=== PATIENT | male | born 1940 | race Caucasian/White ===

== ENCOUNTER 2018-10-16 17:51 | Emergency (ER) | payer MEDICARE ==
[~2018-10-16] VITALS: Ht 188 cm; Wt 99.4 kg
[2018-10-16 17:52] VITALS: BP 164/77
[2018-10-16] MEDS ORDERED: DOXYCYCLINE HYCLATE 100 MG TAB PO ONE (18:15)
[2018-10-17] MEDS ORDERED: METAL LOCK LOOP XX ONE (05:57)
[2018-10-20 00:08] LABS: Lyme Disease IgG/IgM Antibodie <0.91 ISR (0.00-0.90); Lyme Disease IgM Ab Quantitati <0.80 index (0.00-0.79)
== END 2018-10-16 20:56 | disposition home or self-care (01) ==
LOC: M ED 17:51
DX: S70.362A Insect bite (nonvenomous), left thigh, initial encounter (principal); W57.XXXA Bitten or stung by nonvenomous insect and other nonvenomous arthropods, initial encounter; Y92.89 Other specified places as the place of occurrence of the external cause; I10 Essential (primary) hypertension; Z87.891 Personal history of nicotine dependence

== ENCOUNTER → 2019-10-31 | Outpatient (CLI) | payer MEDICARE ==
[2019-10-31 08:33] LABS: HEMATOCRIT 46.8 % (42.0-52.0); HEMOGLOBIN 14.9 g/dl (13.5-17.5); MEAN CORPUSCULAR HEMOGLOBIN 28.8 pg (27.0-33.0); MEAN CORPUSCULAR HGB CONC 31.8 g/dl (32.0-36.5); MEAN CORPUSCULAR VOLUME 90.5 fl (80.0-96.0); PLATELET COUNT, AUTOMATED 179 10^3/uL (150-450); RED BLOOD COUNT 5.17 10^6/uL (4.30-6.10); WHITE BLOOD COUNT 3.5 10^3/uL (4.0-10.0)
[2019-10-31 08:53] LABS: APPEARANCE, URINE CLEAR (CLEAR); BACTERIA, URINE AUTO NEGATIVE (NEGATIVE); BILIRUBIN, URINE AUTO NEGATIVE (NEGATIVE); BLOOD, URINE BLOOD NEGATIVE (NEGATIVE); COLOR, URINE YELLOW (YELLOW); GLUCOSE, URINE (UA) AUTO NEGATIVE (NEGATIVE); KETONE, URINE AUTO NEGATIVE (NEGATIVE); LEUKOCYTE ESTERASE, URINE AUTO NEGATIVE (NEGATIVE); MUCUS, URINE SMALL (NEGATIVE); NITRITE, URINE AUTO NEGATIVE (NEGATIVE); PROTEIN, URINE AUTO NEGATIVE (NEGATIVE); RBC, URINE AUTO 1 /HPF (0-3); SPECIFIC GRAVITY URINE AUTO 1.015 (1.002-1.035); SQUAMOUS EPITHELIAL CELL UR AU 0 /HPF (0-6); UROBILINOGEN, URINE AUTO 0.2 mg/dL (0.0-2.0); WBC, URINE AUTO 0 /HPF (0-3)
[2019-10-31 09:00] LABS: ALBUMIN 3.7 GM/DL (3.2-5.2); ALT/SGPT 27 U/L (12-78); BILIRUBIN,TOTAL 0.5 MG/DL (0.2-1.0); BLOOD UREA NITROGEN 19 MG/DL (7-18); CALCIUM LEVEL 8.6 MG/DL (8.8-10.2); CARBON DIOXIDE LEVEL 28 MEQ/L (21-32); CHLORIDE LEVEL 108 MEQ/L (98-107); CHOLESTEROL LEVEL 170 MG/DL (<200); CHOLESTEROL RISK RATIO 4.857 (<5); CREATININE FOR GFR 0.78 MG/DL (0.70-1.30); GLOMERULAR FILTRATION RATE > 60.0 (>42); GLUCOSE, FASTING 90 MG/DL (70-100); HDL CHOLESTEROL 35 MG/DL (>40); LDL CHOLESTEROL 119 MG/DL (<100); NON-HDL-C 135 MG/DL; POTASSIUM SERUM 4.6 MEQ/L (3.5-5.1); PROSTATIC SPECIFIC AG MONITOR 1.99 NG/ML (< 4.00); SODIUM LEVEL 144 MEQ/L (136-145); TOTAL PROTEIN 7.2 GM/DL (6.4-8.2); TRIGLYCERIDES LEVEL 81 MG/DL (<150)
--- NOTE | 2019-10-31 10:10 | REP ---
REASON FOR EXAM: History of COPD. COMPARISON: Multiple, the latest 07/09/2012. Once again, note is made of previous median sternotomy. The lung aparicio are clear and unchanged. The pleural angles are again seen to be sharp. There is no significant change in the appearance of the osseous structures. IMPRESSION: Stable chest without evidence of acute cardiopulmonary disease. Electronically Signed by Saul Montero DO 10/31/2019 12:11 P
[2019-10-31 10:40] LABS: HEMOGLOBIN A1c 5.5 %
[2019-11-01 08:08] LABS: LDL DIRECT 116 mg/dL (0-99)
== END ==
LOC: M LAB 07:30
PROVIDERS: ATTEND Internal Medicine Cardiovascular Disease
DX: J44.9 Chronic obstructive pulmonary disease, unspecified (principal); E78.5 Hyperlipidemia, unspecified; D64.9 Anemia, unspecified; R35.1 Nocturia; N39.0 Urinary tract infection, site not specified; E11.9 Type 2 diabetes mellitus without complications

== ENCOUNTER → 2019-11-22 | Outpatient (CLI) | payer MEDICARE ==
--- NOTE | 2019-11-22 09:09 | REP ---
ULTRASOUND ABDOMINAL AORTA: Real-time sonographic evaluation of the abdominal aorta are performed. There is no sonographic evidence of abdominal aortic aneurysm. There is ectasia of the mid abdominal aorta which reaches a maximum AP dimension of 2.7 cm. More proximally at the level of the diaphragms, maximum AP diameter is 2.7 cm, at the level of the renal artery is 2.1 cm and distally just above the bifurcation 2.0 cm. Common iliac arteries are normal in caliber, right measuring 1.1 cm and left 1.2 cm in AP dimension. 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 Electronically Signed by Homer Mosqueda MD 11/23/2019 03:59 P
== END ==
LOC: M RAD 06:49
PROVIDERS: ATTEND Internal Medicine Cardiovascular Disease
DX: J44.9 Chronic obstructive pulmonary disease, unspecified (principal)

== ENCOUNTER 2020-05-20 03:19 | Observation (INO) | payer MEDICARE ==
[~2020-05-20] VITALS: Ht 188 cm; Wt 98.7 kg
[2020-05-20] MEDS: METOPROLOL 5 MG/5 ML VIAL IV SCH ×3 (04:08→04:21)
[2020-05-20 04:09] LABS: BASO % 0.7 % (0.0-1.0); EOS # 0.2 10^3/uL (0.0-0.5); EOS % 4.7 % (0.0-3.0); HEMATOCRIT 47.7 % (42.0-52.0); HEMOGLOBIN 15.1 g/dl (13.5-17.5); LYMPH # 1.1 10^3/uL (1.5-5.0); LYMPH % 24.9 % (24.0-44.0); MEAN CORPUSCULAR HEMOGLOBIN 28.4 pg (27.0-33.0); MEAN CORPUSCULAR HGB CONC 31.7 g/dl (32.0-36.5); MEAN CORPUSCULAR VOLUME 89.7 fl (80.0-96.0); MONO # 0.5 10^3/uL (0.0-0.8); MONO % 11.8 % (0.0-5.0); NEUTROPHILS # 2.6 10^3/uL (1.5-8.5); NEUTROPHILS % 57.7 % (36.0-66.0); PLATELET COUNT, AUTOMATED 172 10^3/uL (150-450); RED BLOOD COUNT 5.32 10^6/uL (4.30-6.10); WHITE BLOOD COUNT 4.5 10^3/uL (4.0-10.0)
--- NOTE | 2020-05-20 04:14 | REPVR ---
PROCEDURE INFORMATION: Exam: XR Chest, 1 View Exam date and time: 05/20/2020 3:58 AM Age: 79 years old Clinical indication: Other: Chest pain TECHNIQUE: Imaging protocol: XR of the chest Views: 1 view. COMPARISON: CR Chest, 2 view PA, Lat 10/31/2019 8:16 AM FINDINGS: Lungs: The lungs are clear. Pleural space: No pleural effusions or pneumothorax identified. Heart/Mediastinum: Mediastinal clips are noted. The heart is normal in size. Bones/joints: There are sternal wires consistent with previous sternotomy incision. Discontinuity of the 2 more superior sternal wires is unchanged. IMPRESSION: No evidence of acute pleural or parenchymal disease. Electronically signed by: Vaishali Hoang On 05/20/2020 04:14:16 AM
[2020-05-20 04:21] VITALS: BP 109/59
[2020-05-20 04:35] LABS: BLOOD UREA NITROGEN 25 MG/DL (7-18); CALCIUM LEVEL 8.1 MG/DL (8.8-10.2); CARBON DIOXIDE LEVEL 25 MEQ/L (21-32); CHLORIDE LEVEL 110 MEQ/L (98-107); CK-MB VALUE MASS 1.7 NG/ML (<3.6); CPK CREATINE PHOSPHOKINASE 101 U/L (39-308); CREATININE FOR GFR 0.82 MG/DL (0.70-1.30); FREE T4 1.01 NG/DL (0.76-1.46); GLOMERULAR FILTRATION RATE > 60.0 (>42); GLUCOSE, FASTING 109 MG/DL (70-100); MB/CK RELATIVE INDEX 1.68 (< OR =4); POTASSIUM SERUM 3.9 MEQ/L (3.5-5.1); SODIUM LEVEL 142 MEQ/L (136-145); TROPONIN I < 0.02 NG/ML (< 0.10)
[2020-05-20] MEDS ORDERED: DIGOXIN INJ 0.5 MG/2 ML AMP (J1160) IV ONE (04:45)
[2020-05-20] MEDS ORDERED: ISOVUE-370 76% 100ML VIAL As Ordered ONE (05:17)
--- NOTE | 2020-05-20 05:54 | REPVR ---
PROCEDURE INFORMATION: Exam: CT Angiography Chest With Contrast Exam date and time: 05/20/2020 5:23 AM Age: 79 years old Clinical indication: Chest pain; Additional info: Chest pain, new onset afib TECHNIQUE: Imaging protocol: Computed tomographic angiography of the chest with intravenous contrast. 3D rendering (Not supervised by radiologist): MIP and/or 3D reconstructed images were created by the technologist. Radiation optimization: All CT scans at this facility use at least one of these dose optimization techniques: automated exposure control; mA and/or kV adjustment per patient size (includes targeted exams where dose is matched to clinical indication); or iterative reconstruction. Contrast material: ISOVUE 370; Contrast volume: 75 ml; Contrast route: INTRAVENOUS (IV); COMPARISON: CR PORTABLE CHEST X-RAY 05/20/2020 3:48 AM FINDINGS: Pulmonary arteries: The pulmonary arteries demonstrate mild central enlargement, consistent with mild pulmonary hypertension. The pulmonary artery measures 3.2 cm. No filling defects are seen to indicate an acute pulmonary embolism. Aorta: The aorta demonstrates mild atherosclerotic calcification. No aortic aneurysm. The contrast bolus was not timed for complete assessment of the thoracic aorta, but there is no of evidence of thoracic aortic dissection. Lungs: There is ground-glass opacity in the dependent regions of the bilateral lower lobes and a small amount in the dependent regions of the bilateral upper lobes. There is mild bronchial wall thickening in the bilateral lower lobes. There is no significant consolidation. Pleural space: No pleural effusions or pneumothorax identified. Heart: There are surgical clips related to coronary artery bypass grafts. There is mild cardiomegaly. Lymph nodes: No lymphadenopathy is seen. Bones/joints: There are sternal wires consistent with previous sternotomy incision. No suspicious osseous lesions. No acute fractures. Soft tissues: Unremarkable. IMPRESSION: 1. No evidence of acute pulmonary embolism. 2. Mild enlargement of the central pulmonary arteries, which can be seen with pulmonary hypertension. 3. Ground-glass opacity in the dependent regions of the lungs bilaterally, which may be due to incomplete expansion and mild atelectasis or mild dependent pulmonary edema. Electronically signed by: Vaishali Hoang On 05/20/2020 05:54:25 AM
[2020-05-20] MEDS ORDERED: DIGOXIN 0.25 MG TAB PO STA ×2 (06:07→13:45)
[2020-05-20] MEDS ORDERED: ATORVASTATIN 20 MG TAB PO SCH (09:00)
[2020-05-20] MEDS ORDERED: ASPIRIN 81 MG ENTERIC TAB PO SCH (09:00)
[2020-05-20] MEDS ORDERED: METOPROLOL TART 25 MG TABLET PO SCH (09:00)
[2020-05-20] MEDS ORDERED: MAALOX 30 ML SUSP *UDC PO PRN (11:00)
[2020-05-20] MEDS ORDERED: MOM 30ML SUSPENSION UDC PO PRN (11:00)
[2020-05-20] MEDS ORDERED: ACETAMINOPHEN TAB 650MG DOSE (2X325MG) PO PRN (11:00)
--- NOTE | 2020-05-20 12:27 | ECGEPIP ---
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
[2020-05-20 13:46] LABS: RSV AMPLIFICATION NEGATIVE (NEGATIVE)
--- NOTE | 2020-05-20 14:20 | HPEPDOC ---
[facility] Medical History & Physical Date of Admission May 20, 2020 Date of Service: May 20, 2020 History and Physical CHIEF COMPLAINT: Left shoulder pain HISTORY OF PRESENT ILLNESS: 79M PMHx CAD s/p CABG 2008 not on any medications follows with Dr Teixeira in [place] who presents to the ED for left shoulder discomfort after shoveling snow. Tells me more uncomfortable than painful. He says he is able to replicate the pain when he rotates his shoulder joint in a circular motion. Stretching seems to alleviate this discomfort. He hasn't taken anything to alleviate this discomfort. He says it feels like a sore muscle. Patient was found incidentally to have atrial fibrillation with a rapid ventricular response. Patient denied any knowledge of a history of atrial fibrillation. At no point today or yesterday did he have any chest pain or shortness of breath. He denies any palpitations or chest discomfort. The he says he feels well other than the left shoulder discomfort. He wonders about the validity of the readings on the potline monitor because he doesn't believe anything is strong with his heart. Of note patient does endorse drinking lots of coffee daily between 6-8 cups. "Coffee is all I drink day long" The emergency department for the patient's atrial fibrillation with RVR patient was given 5 mg of IV metoprolol which lowered his blood pressure. He was also given a loading dose of digoxin 0.5 mg IV followed by 0.25 mg by mouth. Patient remained with a rapid ventricular response rate around 110 to 130. Patient will be admitted for medical management and cardiology was consulted. .0.PAST MEDICAL HISTORY: Coronary artery disease status post CABG 2008 PAST SURGICAL HISTORY: CABG 2009 SOCIAL HISTORY: Endorses drinking red wine about 4 ounces every day for a couple of days Denies tobacco use Denies illicit drug use FAMILY HISTORY: Sister lung cancer Brother coronary artery disease ALLERGIES: Please see below. REVIEW OF SYSTEMS: 10 point review of systems complete all negative otherwise stated in HPI HOME MEDICATIONS: Please see below. PHYSICAL EXAMINATION: Constitutional: Awake and alert, in no apparent distress ENT: Sclera are clear. Mucosa is moist. Respiratory: Lungs CTA bilaterally. No respiratory distress. No use of accessory muscles. Cardiovascular: Irregular fast heart rate Gastrointestinal: Abdomen is soft, non distended, non tender, BS present. Musculoskeletal: No upper or lower extremity edema. RUE 5/5, LUE 5/5, BLE 5/5. Left shoulder blade uncomfortable when manipulating shoulder feels sore. No limit to the range of motion of the shoulder. Neurologic: No focal neurological deficit. Mental Status: A&O x3, normal affect Skin: Warm, dry LABORATORY DATA: See below. IMAGING: CT chest 05/20/2020 impression: 1. No evidence of acute pulmonary embolism. 2. Mild enlargement of the central pulmonary arteries, which can be seen with pulmonary hypertension. 3. Ground-glass opacity in the dependent regions of the lungs bilaterally, which may be due to incomplete expansion and mild atelectasis or mild dependent pulmonary edema. MICROBIOLOGY: Please see below. ASSESSMENT/PLAN 79M PMHx CAD s/p CABG 2008 not on any medications follows with Dr Teixeira in [place] who presents to the ED for left shoulder discomfort after shoveling snow. Incidentally found to have asymptomatic A. fib with RVR. Patient was admitted for further workup and management. Cardiology was consulted. # A. fib with RVR: Unknown onset. Could be related to coffee consumption 6-8 cups daily. Asymptomatic no chest pain or palpitations. Given loading dose of digoxin. Continue digoxin 0.52 mg daily. Repeat EKG. Fu Echo. Cardiology Dr. Gregorio was consulted. Started on metoprolol 25 mg by mouth twice daily. Started anticoagulation with Xarelto 20 mg daily. # Left shoulder pain: Appears to be MSK related to shoveling snow. Reproducible on examination by manipulation of shoulder. CT chest in October chest x-ray were done in the ED which were reviewed. Tylenol as needed for pain. # CAD S/P CABG: started on baby aspirin and Lipitor. Fu lipid panel. # DVT prophylaxis: Xarelto [facility] Vital Signs Vital Signs Date Time Temp Pulse Resp B/P (MAP) Pulse Ox O2 Delivery O2 Flow Rate FiO2 05/20/20 13:46 122 97 Room Air 05/20/20 13:45 103/61 (75) 05/20/20 11:00 18 05/20/20 03:20 96.5 Laboratory Data Labs 24H Laboratory Tests 2 05/20/20 03:48: Immature Granulocyte % (Auto) 0.2, Neutrophils (%) (Auto) 57.7, Lymphocytes (%) (Auto) 24.9, Monocytes (%) (Auto) 11.8H, Eosinophils (%) (Auto) 4.7H, Basophils (%) (Auto) 0.7, Neutrophils # (Auto) 2.6, Lymphocytes # (Auto) 1.1L, Monocytes # (Auto) 0.5, Eosinophils # (Auto) 0.2, Basophils # (Auto) 0.0, Nucleated Red Blood Cells % (auto) 0.0, Anion Gap 7L, Glomerular Filtration Rate > 60.0, Calcium Level 8.1L, Magnesium Level 2.0, Total Creatine Kinase 101, Creatine Kinase MB 1.7, Creatine Kinase MB Relative Index 1.68, Troponin I < 0.02, Thyroid Stimulating Hormone (TSH) 16.600H, Free Thyroxine 1.01 05/20/20 13:00: Coronavirus (COVID-19)(PCR) NEGATIVE, Influenza Type A (RT-PCR) NEGATIVE, Influenza Type B (RT-PCR) NEGATIVE, Respiratory Syncytial Virus (PCR) NEGATIVE CBC/BMP Laboratory Tests 05/20/20 03:48 Home Medications No Active Prescriptions or Reported Meds Allergies Coded Allergies: No Known Allergies (Unverified , 10/16/18) A-FIB/CHADSVASC A-FIB History Current/History of A-Fib/PAF?: Yes Current PO Anticoag Therapy: Yes YOUSEFKATHERYN MD May 20, 2020 14:20
--- NOTE | 2020-05-20 14:44 | CR ---
CONSULTATION DATE: 05/20/2020 REFERRING PHYSICIAN: Dr. Hernandez INDICATION: Atrial fibrillation with a rapid ventricular response. HISTORY OF PRESENT ILLNESS: Mr. Meyer is a 79-year-old man who was previously unknown to me. He is followed by [facility] in [place]. He presented to [facility] last night for a sensation of poorly described discomfort in his left shoulder associated with a sensation of indigestion and "gas in his chest." He did some shoveling of snow yesterday and he also had a little bit of alcohol last evening but none of that was out ordinary for him. He on presentation was found to be in atrial fibrillation with rapid ventricular response even though he had no awareness of the arrhythmia. He was given initially IV metoprolol which unfortunately was not well tolerated because he dropped blood pressure and consequently was given a total of 0.75 mg of initially IV and then p.o. digoxin. This led to no appreciable effect on his atrial fibrillation, his current heart rate remains between 100 and 130 beats per minute mostly toward the upper end of the spectrum. He is feeling well, though. He said that the discomfort in his left shoulder is mostly subsiding and he has no sensation of palpitations or shortness of breath. The patient does not recall any history of atrial fibrillation in the past. He believes that he was last seen by Dr. Teixeira in November of this year and at that point he does not recall any irregularity being mentioned. At his baseline, he is a quite active man even though he is 79 years old. He does have a fairly busy life, still does a lot of physical work and he works out on his own and has no trouble doing so. PAST MEDICAL HISTORY: 1. Coronary artery disease, history of CABG in 2008. He never had a heart attack. 2. The patient reported that his cholesterol was previously mildly elevated but he has not been taking any medications. He apparently was briefly on statins but after he did some research on his own, he stopped taking the medication. 3. He denies also any history of kidney, liver or lung disease. SOCIAL HISTORY: The patient is . 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 He does not smoke even though he briefly smoked as a young man. He drinks a glass of red wine or a couple- three times a week. FAMILY HISTORY: His brother had a bypass surgery at a relatively young age but there are no additional first degree relatives with CAD. He says that his brother has extremely unhealthy lifestyle. OUTPATIENT MEDICATIONS: None. ALLERGIES: No allergies. REVIEW OF SYSTEMS: He denies any recent fever, chills, nausea, vomiting, diarrhea. There was been no shortness of breath, chest pain, palpitations, syncope or near syncope. No abdominal pain, no peripheral edema. The rest of review of system is essentially negative or as per HPI. PHYSICAL EXAMINATION: Mr. Meyer is an elderly man who appears somewhat younger than his chronological age. He is alert, oriented, appropriate, no distress. The last set of vital signs revealed blood pressure 117/76, heart rate 140. He is afebrile, saturation 97% on room air and his weight was recorded as 103.6 kilograms. His JVP is not high. I do not appreciate carotid bruit. Lung are clear with good air movement. Heart exam reveals irregular tachycardia. I do not appreciate any rub, murmur or gallop. Precordial impulse is not displaced. Abdomen is soft without tenderness or rebound tenderness. No hepatosplenomegaly is noted. There is no peripheral edema and his peripheral pulses are palpable. I do not appreciate skin lesions. He freely moves all four extremities and his speech is intact. LABORATORIES: Normal CBC. Normal basic metabolic panel. His cardiac enzymes are negative x1. TSH is 16.6 and free T4 1.0. ECG reveals atrial fibrillation with rapid ventricular response and minimal nonspecific repolarization abnormalities. He had a chest x-ray and CT angiography of the chest, none of which revealed any acute disease. There is evidence for sternotomy and some minimal ground-glass opacity over inferior lung aparicio on CT angiography of the chest. ASSESSMENT AND PLAN: Mr. Meyer is a 79-year-old man who has history of CABG 11 years ago and has had no medical issues since. At his baseline, he is very active and reports excellent exertional tolerance. He presented last night with poorly defined left shoulder discomfort associated with vague chest discomfort. He was found to be in atrial fibrillation with rapid ventricular response of which he had no awareness. At this point, he is still not rate controlled and consequently he is being brought for hospitalization. As far as the management of atrial fibrillation is concerned, I had a long discussion with the patient regarding what is atrial fibrillation, what are the concerns and typical management options. The first goal would be to start patient on anticoagulation and rate control the atrial fibrillation. We have no idea how long the arrhythmia has been present but there is some chance that the discomfort and the sensation in his chest actually are sales and marketing representative of atrial fibrillation which would mean relatively recent onset just last night. Should that be the case, there is a good probability that he will convert the spontaneously to sinus rhythm by tomorrow morning. I would still discharge him home on anticoagulation or at least low dose beta oralia. Even though he did not tolerate administration of IV beta blockers last night, I still think that he will tolerate oral doses without problems and I will give him 25 mg of metoprolol twice a day. He received 0.75 mg of digoxin and for the time being, I am not going to administer additional doses. Xarelto was already ordered by Dr. Hernandez for anticoagulation. Provided he converts to sinus rhythm by tomorrow morning, he certainly can be discharged home and follow with Dr. Teixeira. If he does not convert, I think we should accomplish reasonable rate control before discharge. Even though I do think that there is a possibility to perform a ELENO-guided cardioversion, I do not believe it is necessary as patient is essentially asymptomatic and a variety of other options are available to him as far as the management is concerned and the performance of the test would delay his discharge. I am going to be off starting tomorrow morning and Dr. Herrera will take over my service. Please contact him if any further questions or concerns. In the long run, there is expectation that patient will follow with Dr. Teixeira who is his regular pickler helper. He should be informed tomorrow about his admission. BR[facility]
[2020-05-20 14:57] VITALS: BP 90/60
[2020-05-20 15:18] VITALS: BP 105/70
[2020-05-20 16:00] VITALS: BP 129/60
[2020-05-20] MEDS ORDERED: ATOR1TAB21 PO (16:22)
[2020-05-20] MEDS ORDERED: ASPI81TAEC PO (16:22)
[2020-05-20] MEDS ORDERED: XARE20TA PO (16:23)
[2020-05-20] MEDS ORDERED: METO1TAB87 PO (16:23)
[2020-05-20] MEDS ORDERED: RIVAROXABAN 20 MG TAB (XARELTO) PO SCH (18:00)
[2020-05-20] MEDS ORDERED: DOCUSATE SODIUM 100MG CAPSULE PO SCH (21:00)
[2020-05-21] MEDS ORDERED: DIGOXIN 0.25 MG TAB PO SCH (09:00)
== END 2020-05-20 17:02 | disposition left against medical advice (07) ==
LOC: M ED 03:19 → M ED INP 10:53 → INTOOBSV 10:53 → M PCU 14:30
PROVIDERS: ADMIT Family Medicine; ATTEND Family Medicine
DX: I48.0 Paroxysmal atrial fibrillation (principal); I25.10 Atherosclerotic heart disease of native coronary artery without angina pectoris; Z95.1 Presence of aortocoronary bypass graft; Z79.01 Long term (current) use of anticoagulants
CPT/HCPCS: 71045; 71275; 80048; 82550; 82553; 83735; 84439; 84443; 84484; 85025; 87631; 93005; 93041; 94760; 96374; 99285; G0378; J1160; Q9967

== ENCOUNTER → 2021-06-26 | Outpatient (CLI) | payer MEDICARE ==
[~2021-06-26] MED LIST: ASPI-569 PO; ATOR1TAB21 PO; METO1TAB87 PO; XARE20TA PO
[2021-06-26 08:09] LABS: HEMATOCRIT 45.7 % (42.0-52.0); HEMOGLOBIN 14.7 g/dl (13.5-17.5); MEAN CORPUSCULAR HEMOGLOBIN 29.2 pg (27.0-33.0); MEAN CORPUSCULAR HGB CONC 32.2 g/dl (32.0-36.5); MEAN CORPUSCULAR VOLUME 90.7 fl (80.0-96.0); PLATELET COUNT, AUTOMATED 156 10^3/uL (150-450); RED BLOOD COUNT 5.04 10^6/uL (4.30-6.10); WHITE BLOOD COUNT 3.7 10^3/uL (4.0-10.0)
[2021-06-26 08:22] LABS: APPEARANCE, URINE CLEAR (CLEAR); BACTERIA, URINE AUTO NEGATIVE (NEGATIVE); BILIRUBIN, URINE AUTO NEGATIVE (NEGATIVE); BLOOD, URINE BLOOD NEGATIVE (NEGATIVE); COLOR, URINE YELLOW (YELLOW); GLUCOSE, URINE (UA) AUTO NEGATIVE (NEGATIVE); KETONE, URINE AUTO NEGATIVE (NEGATIVE); LEUKOCYTE ESTERASE, URINE AUTO NEGATIVE (NEGATIVE); MUCUS, URINE SMALL (NEGATIVE); NITRITE, URINE AUTO NEGATIVE (NEGATIVE); PROTEIN, URINE AUTO NEGATIVE (NEGATIVE); RBC, URINE AUTO 1 /HPF (0-3); SQUAMOUS EPITHELIAL CELL UR AU 0 /HPF (0-6); UROBILINOGEN, URINE AUTO 0.2 mg/dL (0.0-2.0); WBC, URINE AUTO 1 /HPF (0-3)
[2021-06-26 08:38] LABS: HEMOGLOBIN A1c 5.4 %
[2021-06-26 09:04] LABS: ALBUMIN 3.6 GM/DL (3.2-5.2); ALT/SGPT 25 U/L (12-78); BILIRUBIN,TOTAL 0.4 MG/DL (0.2-1.0); BLOOD UREA NITROGEN 16 MG/DL (7-18); CALCIUM LEVEL 8.7 MG/DL (8.8-10.2); CARBON DIOXIDE LEVEL 30 MEQ/L (21-32); CHLORIDE LEVEL 109 MEQ/L (98-107); CHOLESTEROL LEVEL 146 MG/DL (<200); CHOLESTEROL RISK RATIO 3.743 (<5); GLOMERULAR FILTRATION RATE > 60.0 (>42); GLUCOSE, FASTING 94 MG/DL (70-100); HDL CHOLESTEROL 39 MG/DL (>40); LDL CHOLESTEROL 94 MG/DL (<100); MAGNESIUM LEVEL 2.2 MG/DL (1.8-2.4); NON-HDL-C 107 MG/DL; POTASSIUM SERUM 4.3 MEQ/L (3.5-5.1); PROSTATIC SPECIFIC AG MONITOR 0.96 NG/ML (< 4.00); SODIUM LEVEL 144 MEQ/L (136-145); TOTAL PROTEIN 6.6 GM/DL (6.4-8.2); TRIGLYCERIDES LEVEL 67 MG/DL (<150)
[2021-06-26 09:05] LABS: FREE T4 1.05 NG/DL (0.76-1.46)
== END ==
LOC: M LAB 07:37
PROVIDERS: ATTEND Internal Medicine Cardiovascular Disease
DX: D64.9 Anemia, unspecified (principal); E11.9 Type 2 diabetes mellitus without complications

== ENCOUNTER 2024-12-01 19:21 | Emergency (ER) | payer MEDICARE ==
[~2024-12-01] VITALS: Ht 188 cm; Wt 99.3 kg
[~2024-12-01 19:21] MED LIST changes: -DOXY-441 PO
[2024-12-02] MEDS ORDERED: DOXY-441 PO (00:02)
[2024-12-02] MEDS: DOXYCYCLINE HYCLATE 100 MG TABLET PO ONE (00:14)
[2024-12-02 00:35] VITALS: BP 148/72; TEMP 98.3; O2SAT 98
== END 2024-12-02 00:36 | disposition home or self-care (01) ==
LOC: M ED 19:21
DX: L03.116 Cellulitis of left lower limb (principal); D64.9 Anemia, unspecified; R73.03 Prediabetes; E78.5 Hyperlipidemia, unspecified; Z79.1 Long term (current) use of non-steroidal anti-inflammatories (NSAID); Z79.2 Long term (current) use of antibiotics; Z79.01 Long term (current) use of anticoagulants; Z79.899 Other long term (current) drug therapy

== ENCOUNTER → 2024-12-01 | Outpatient (CLI) | payer MEDICARE ==
[~2024-12-01] MED LIST changes: +DOXY-441 PO
[2024-12-01 12:04] LABS: BASO # 0.0 10^3/uL (0.0-0.2); BASO % 0.8 % (0.0-1.0); EOS # 0.3 10^3/uL (0.0-0.5); EOS % 6.0 % (0.0-3.0); LYMPH # 0.8 10^3/uL (1.5-5.0); LYMPH % 16.8 % (24.0-44.0); MONO # 0.6 10^3/uL (0.0-0.8); MONO % 11.2 % (2.0-8.0); NEUTROPHILS # 3.3 10^3/uL (1.5-8.5); NEUTROPHILS % 65.0 % (36.0-66.0); PLATELET COUNT, AUTOMATED 170 10^3/uL (150-450)
[2024-12-01 12:13] LABS: ESTIMATED AVERAGE GLUCOSE 108.0 MG/DL (60-110)
[2024-12-01 12:36] LABS: ALT/SGPT 19.0 U/L (7.0-40); AST/SGOT 22.0 U/L (<34); CALCIUM LEVEL 9.0 MG/DL (8.3-10.6); CARBON DIOXIDE LEVEL 28.0 MMOL/L (20-31); CHLORIDE LEVEL 105.0 MMOL/L (98-107); CHOLESTEROL LEVEL 169.0 MG/DL (<200); CHOLESTEROL RISK RATIO 4.63 (<5); CREATININE FOR GFR 0.85 MG/DL (0.70-1.30); GLOMERULAR FILTRATION RATE 86.8 (>35); LDL CHOLESTEROL 118.5 MG/DL (<100); NON-HDL-C 132.5 MG/DL; POTASSIUM SERUM 4.8 MMOL/L (3.5-5.1); SODIUM LEVEL 143.0 MMOL/L (136-145); TRIGLYCERIDES LEVEL 70.0 MG/DL (<150)
[2024-12-01 12:44] LABS: FREE T4 1.19 NG/DL (0.89-1.76)
== END ==
LOC: M LAB 10:46
PROVIDERS: ATTEND Internal Medicine Cardiovascular Disease
DX: E78.5 Hyperlipidemia, unspecified (principal); D64.9 Anemia, unspecified; R73.03 Prediabetes

== ENCOUNTER → 2025-04-20 | Outpatient (CLI) | payer MEDICARE ==
[~2025-04-20] MED LIST changes: +DOXY-441 PO
[2025-04-20 10:01] LABS: BASO # 0.0 10^3/uL (0.0-0.2); BASO % 0.9 % (0.0-1.0); EOS # 0.3 10^3/uL (0.0-0.5); EOS % 6.0 % (0.0-3.0); LYMPH # 1.0 10^3/uL (1.5-5.0); LYMPH % 22.5 % (24.0-44.0); MONO # 0.6 10^3/uL (0.0-0.8); MONO % 12.9 % (2.0-8.0); NEUTROPHILS # 2.6 10^3/uL (1.5-8.5); NEUTROPHILS % 57.5 % (36.0-66.0); PLATELET COUNT, AUTOMATED 196 10^3/uL (150-450)
[2025-04-20 10:30] LABS: ESTIMATED AVERAGE GLUCOSE 117.0 MG/DL (60-110)
[2025-04-20 10:34] LABS: ALT/SGPT 25.0 U/L (7.0-40); AST/SGOT 22.0 U/L (<34); CALCIUM LEVEL 8.6 MG/DL (8.3-10.6); CARBON DIOXIDE LEVEL 28.0 MMOL/L (20-31); CHLORIDE LEVEL 108.0 MMOL/L (98-107); CHOLESTEROL LEVEL 167.0 MG/DL (<200); CHOLESTEROL RISK RATIO 5.12 (<5); CREATININE FOR GFR 0.94 MG/DL (0.70-1.30); GLOMERULAR FILTRATION RATE 80.4 (>35); LDL CHOLESTEROL 121.0 MG/DL (<100); NON-HDL-C 134.4 MG/DL; POTASSIUM SERUM 4.6 MMOL/L (3.5-5.1); SODIUM LEVEL 143.0 MMOL/L (136-145); TRIGLYCERIDES LEVEL 67.0 MG/DL (<150)
[2025-04-20 10:37] LABS: FREE T4 1.01 NG/DL (0.89-1.76)
== END ==
LOC: M LAB 09:28
PROVIDERS: ATTEND Internal Medicine Cardiovascular Disease
DX: E03.9 Hypothyroidism, unspecified (principal); E73.9 Lactose intolerance, unspecified; E78.5 Hyperlipidemia, unspecified; D64.9 Anemia, unspecified; Z79.899 Other long term (current) drug therapy